=== PATIENT | female | born 1930 | race Caucasian/White ===

== ENCOUNTER 2017-05-12 07:05 | Observation (INO) | payer MEDICARE ==
[~2017-05-12] VITALS: Ht 162.6 cm; Wt 84.1 kg
[2017-05-12] MEDS ORDERED: ONDANSETRON HCL 4 MG/2 ML VIAL ONE (07:20)
[2017-05-12] MEDS ORDERED: MORPHINE SULFATE 2 MG/ML 1ML SYG ONE (07:20)
[2017-05-12 07:57] LABS: BASOPHILS % (AUTO) 0.5 % (0.0-5.0); EOSINOPHILS % (AUTO) 0.5 % (0.0-8.0); HEMATOCRIT 41.9 % (36-48); MEAN CORPUSCULAR HEMOGLOBIN 30.4 pg (27.0-33.0); MEAN CORPUSCULAR VOLUME 89.6 fL (79-99); PLATELET COUNT (AUTO) 157 K/uL (130-400); RED BLOOD CELL COUNT(AUTO) 4.67 MIL/uL (4.00-5.50); RED CELL DISTRIBUTION WIDTH 14.1 % (11.0-15.5); WHITE BLOOD COUNT (AUTO) 6.4 K/uL (4.8-10.8)
[2017-05-12 08:07] LABS: POTASSIUM 4.9 mmol/L (3.5-5.1)
[2017-05-12 08:22] LABS: ALBUMIN 3.5 g/dL (3.5-5.0); BILIRUBIN,TOTAL 0.8 mg/dL (0.2-1.0); TOTAL PROTEIN, SERUM 7.1 g/dL (6.0-8.3)
[2017-05-12 08:26] LABS: B-TYPE NATRIURETIC PEPTIDE 275 pg/mL (0-100)
[2017-05-12 08:37] LABS: PARTIAL THROMBOPLASTIN TIME 40.1 SEC (26.3-35.5)
[2017-05-12 08:43] LABS: INR 3.9 (0.85-1.15); PROTHROMBIN TIME 39.9 SEC (9.6-11.6)
[2017-05-12] MEDS ORDERED: FUROSEMIDE 10 MG/ML 4ML VIAL ONE (09:29)
[2017-05-12] MEDS ORDERED: GUAIFENESIN-DM 200/20 MG 10 ML PO PRN (09:45)
[2017-05-12] MEDS ORDERED: LACTULOSE 20 GM/30 ML UDCUP PO PRN (09:45)
[2017-05-12] MEDS ORDERED: HYDRALAZINE HCL 20 MG/ML VIAL IV PRN (09:45)
[2017-05-12] MEDS ORDERED: ACETAMINOPHEN 325 MG TAB PO PRN ×2 (09:45)
[2017-05-12] MEDS ORDERED: MORPHINE SULFATE 2 MG/ML 1ML SYG IV PRN (09:45)
[2017-05-12] MEDS ORDERED: NITROGLYCERIN 0.4 MG SL TAB SL PRN (09:45)
[2017-05-12] MEDS ORDERED: ACETAMINOPHEN-CODEINE 300/30MG TAB PO PRN ×2 (09:45)
[2017-05-12] MEDS ORDERED: MAG HYDROX/AL HYDROX/SIMETH ES 30 ML SUSP UDCUP PO PRN (09:45)
[2017-05-12] MEDS ORDERED: MORPHINE SULFATE 4 MG/1ML SYG IV PRN (09:45)
[2017-05-12] MEDS ORDERED: ONDANSETRON HCL 4 MG/2 ML VIAL IV PRN (09:45)
[2017-05-12] MEDS ORDERED: LIDOCAINE HCL-MPF 1% 2ML VIAL IVP PRN (11:00)
[2017-05-12] MEDS ORDERED: POTASSIUM CHLORIDE 20MEQ/100ML 100 ML IV PRN (11:00)
[2017-05-12] MEDS ORDERED: POTASSIUM CHLORIDE 10% ELIXIR 20 MEQ/15 ML UDCUP PO PRN (11:00)
[2017-05-12] MEDS ORDERED: MAGNESIUM 2GM PREMIX 50ML 50 ML IV SCH (11:00)
[2017-05-12] MEDS ORDERED: POTASSIUM CHLORIDE 20 MEQ ERTAB PO PRN (11:00)
[2017-05-12] MEDS ORDERED: IPRATROPIUM/ALBUTEROL SULFATE 3 ML SOLUTION IH PRN (11:15)
[2017-05-12 12:18] VITALS: BP 152/65
[2017-05-12 13:58] LABS: CREATINE KINASE MB 1.1 ng/mL (0.5-3.6); CREATINE KINASE, TOTAL 95 U/L (21-232); MYOGLOBIN 172 ng/mL (10-92); TROPONIN I < 0.04 ng/mL (0.00-0.06)
[2017-05-12 16:12] VITALS: BP 140/74
[2017-05-12 17:49] LABS: APPEARANCE,URINE Clear (CLEAR); BILIRUBIN,URINE Negative (NEGATIVE); COLOR,URINE Yellow (YELLOW); GLUCOSE, URINE (UA) Negative (NEGATIVE); KETONES,URINE Negative (NEGATIVE); LEUKOCYTE ESTERASE ,URINE Trace (NEGATIVE); NITRATE,URINE Negative (NEGATIVE); OCCULT BLOOD,URINE Small (NEGATIVE); PH,URINE 6.5 (5.0-8.0); PROTEIN,URINE Negative (NEGATIVE)
[2017-05-12 18:22] LABS: BACTERIA,URINE Rare /HPF (None Seen); SQUAMOUS EPITHELIAL CELL,UR Rare /LPF (0-2); WBC,URINE 0-1 /HPF (0-1)
[2017-05-12 19:25] VITALS: BP 101/48
[2017-05-12] MEDS: METOPROLOL TARTRATE 25 MG TAB PO SCH (21:00)
[2017-05-12 21:55] LABS: CREATINE KINASE MB 0.9 ng/mL (0.5-3.6); CREATINE KINASE, TOTAL 111 U/L (21-232); MYOGLOBIN 161 ng/mL (10-92); TROPONIN I < 0.04 ng/mL (0.00-0.06)
[2017-05-12] MEDS: FUROSEMIDE 10 MG/ML 2ML VIAL IV SCH (22:42)
[2017-05-12] MEDS: FAMOTIDINE/PF 20 MG/2 ML VIAL IV SCH (22:42)
[2017-05-13] VITALS (7 sets, daily range): BP systolic 104–178; BP diastolic 69–78
[2017-05-13 04:40] LABS: INR 3.39 (0.85-1.15); PROTHROMBIN TIME 34.8 SEC (9.6-11.6)
[2017-05-13 04:42] LABS: CREATININE 1.2 mg/dL (0.5-1.5); POTASSIUM 4.5 mmol/L (3.5-5.1)
[2017-05-13] MEDS: LOSARTAN 100 MG TABLET PO SCH (08:12)
[2017-05-13] MEDS: METOPROLOL TARTRATE 25 MG TAB PO SCH ×2 (08:12→21:00)
[2017-05-13] MEDS: FAMOTIDINE/PF 20 MG/2 ML VIAL IV SCH ×2 (08:13→21:04)
[2017-05-13] MEDS: FUROSEMIDE 10 MG/ML 2ML VIAL IV SCH (08:14)
[2017-05-13] MEDS ORDERED: METO-409 PO (10:59)
[2017-05-13] MEDS ORDERED: FURO20TA4 PO (10:59)
[2017-05-13] MEDS ORDERED: OMEP40CA37 PO (10:59)
[2017-05-13] MEDS ORDERED: WARF-57 PO (10:59)
[2017-05-13] MEDS ORDERED: SIMV40TA5 PO (10:59)
[2017-05-13] MEDS ORDERED: LOSA100T29 PO (10:59)
[2017-05-14 04:00] VITALS: BP 124/78
[2017-05-14 04:30] LABS: INR 2.87 (0.85-1.15); PROTHROMBIN TIME 29.5 SEC (9.6-11.6)
[2017-05-14 07:00] VITALS: BP 112/78
[2017-05-14] MEDS: FAMOTIDINE/PF 20 MG/2 ML VIAL IV SCH (08:14)
[2017-05-14] MEDS: METOPROLOL TARTRATE 25 MG TAB PO SCH (08:14)
[2017-05-14] MEDS: LOSARTAN 100 MG TABLET PO SCH (08:52)
[2017-05-14] MEDS ORDERED: METO-408 PO (10:34)
[2017-05-14 11:00] VITALS: BP 114/70
[2017-05-14] MEDS ORDERED: WARFARIN SODIUM 5 MG TAB PO SCH (16:00)
== END 2017-05-14 15:32 | disposition home or self-care (01) ==
LOC: EDH 07:05 → EDHIP 09:38 → 2CH 14:47
PROVIDERS: ADMIT Internal Medicine; ATTEND Internal Medicine
DX: I48.2 Chronic atrial fibrillation (principal); E78.5 Hyperlipidemia, unspecified; N18.3 Chronic kidney disease, stage 3 (moderate); I12.9 Hypertensive chronic kidney disease with stage 1 through stage 4 chronic kidney disease, or unspecified chronic kidney disease; Z90.710 Acquired absence of both cervix and uterus; Z79.01 Long term (current) use of anticoagulants; J44.9 Chronic obstructive pulmonary disease, unspecified; E78.00 Pure hypercholesterolemia, unspecified; Z79.899 Other long term (current) drug therapy; I73.9 Peripheral vascular disease, unspecified
CPT/HCPCS: 36415 ×3; 71045; 72110; 80048; 80053; 81001; 82550 ×3; 82553 ×3; 82607; 82652; 83735 ×2; 83874 ×2; 83880 ×2; 84132; 84484 ×3; 85025; 85610 ×3; 85730 ×2; 93005 ×2; 93306; 93925; 93971; 94664; 96374; 96375; 96376 ×2; 97161; 99285; G0378 ×54; G8978; G8979; G8980; G8981; G8982; G8983; J1940 ×3; J2405; J3490 ×4

== ENCOUNTER → 2017-05-25 | Outpatient (CLI) | payer MEDICARE ==
[~2017-05-25] MED LIST: FURO20TA4 PO; IOPAMIDOL-370 100 ML VIAL IV ONE; IOPAMIDOL-370 75 ML VIAL IV ONE; LOSA100T29 PO; METO-408 PO; OMEP40CA37 PO; SIMV40TA5 PO; WARF-57 PO
== END | disposition home or self-care (01) ==
LOC: OIH 09:14
PROVIDERS: ATTEND Internal Medicine Cardiovascular Disease
DX: I70.8 Atherosclerosis of other arteries (principal); I73.9 Peripheral vascular disease, unspecified; K57.90 Diverticulosis of intestine, part unspecified, without perforation or abscess without bleeding; I51.7 Cardiomegaly; M89.40 Other hypertrophic osteoarthropathy, unspecified site
CPT/HCPCS: 75635; Q9967 ×2

== ENCOUNTER → 2018-05-04 | Outpatient (CLI) | payer MEDICARE ==
[~2018-05-04] MED LIST changes: -IOPAMIDOL-370 100 ML VIAL IV ONE; -IOPAMIDOL-370 75 ML VIAL IV ONE; -LOSA100T29 PO; +LOSA100T58 PO
== END | disposition home or self-care (01) ==
LOC: SHCH 13:29
PROVIDERS: ATTEND Internal Medicine Cardiovascular Disease
DX: I65.23 Occlusion and stenosis of bilateral carotid arteries (principal)
CPT/HCPCS: 93880

== ENCOUNTER → 2019-02-01 | Outpatient (CLI) | payer MEDICARE ==
[~2019-02-01] MED LIST changes: +OMEP40CA13 PO; -OMEP40CA37 PO; +ONDANSETRON HCL 4 MG/2 ML VIAL ONE; +PROPOFOL 10 MG/ML 20ML VIAL IV ONE; +SIMV-46 PO; -SIMV40TA5 PO
== END | disposition home or self-care (01) ==
LOC: SHCH 08:34
PROVIDERS: ATTEND Internal Medicine Cardiovascular Disease
DX: I08.0 Rheumatic disorders of both mitral and aortic valves (principal); E66.9 Obesity, unspecified; R01.1 Cardiac murmur, unspecified
CPT/HCPCS: 93306; J2405; J2704 ×2

== ENCOUNTER 2020-11-16 19:57 | Emergency (ER) | payer MEDICARE ==
[~2020-11-16] VITALS: Ht 165.1 cm; Wt 81.2 kg
[~2020-11-16 19:57] MED LIST changes: -OMEP40CA13 PO; +OMEP40CA21 PO; -ONDANSETRON HCL 4 MG/2 ML VIAL ONE; -PROPOFOL 10 MG/ML 20ML VIAL IV ONE
[2020-11-16 20:17] VITALS: BP 165/120
[2020-11-16 21:18] LABS: BASOPHILS % (AUTO) 0.5 % (0.0-5.0); EOSINOPHILS % (AUTO) 0.6 % (0.0-8.0); HEMATOCRIT 44.4 % (36-48); LYMPHOCYTES % (AUTO) 16.2 % (21.0-51.0); MEAN CORPUSCULAR HEMOGLOBIN 30.2 pg (27.0-33.0); MEAN CORPUSCULAR HGB CONC 32.9 g/dL (32.0-36.0); MEAN CORPUSCULAR VOLUME 91.9 fL (79-99); MONOCYTES % (AUTO) 6.9 % (3.0-13.0); NEUTROPHILS % (AUTO) 75.4 % (40.0-77.0); PLATELET COUNT (AUTO) 143 K/uL (130-400); RED BLOOD CELL COUNT(AUTO) 4.83 MIL/uL (4.00-5.50); RED CELL DISTRIBUTION WIDTH 13.8 % (11.0-15.5); WHITE BLOOD COUNT (AUTO) 7.7 K/uL (4.8-10.8)
[2020-11-16 21:27] LABS: CREATININE 0.9 mg/dL (0.5-1.5); POTASSIUM 4.5 mmol/L (3.5-5.1)
[2020-11-16 21:30] LABS: INR 1.72 (0.85-1.15); PROTHROMBIN TIME 17.8 SEC (9.6-11.6)
[2020-11-16 21:31] LABS: ALBUMIN 3.8 g/dL (3.5-5.0); TOTAL PROTEIN, SERUM 7.6 g/dL (6.0-8.3)
[2020-11-16 21:35] LABS: B-TYPE NATRIURETIC PEPTIDE 381 pg/mL (0-100)
[2020-11-16] MEDS ORDERED: VITAD50000 PO (22:08)
[2020-11-16] MEDS ORDERED: MULT-1192 PO (22:08)
[2020-11-16] MEDS ORDERED: FISH1CAP27 PO (22:09)
[2020-11-16 22:14] VITALS: BP 169/77
[2020-11-16] MEDS ORDERED: ONDANSETRON 4MG INJ ONE (22:59)
[2020-11-16] MEDS ORDERED: ONDANSETRON 4MG INJ IVP ONE (23:00)
[2020-11-16] MEDS ORDERED: ONDA4TAB10 PO (23:02)
== END 2020-11-16 23:49 | disposition home or self-care (01) ==
LOC: EDH 19:57
DX: R06.00 Dyspnea, unspecified (principal); R11.0 Nausea; I48.91 Unspecified atrial fibrillation; I10 Essential (primary) hypertension; M81.0 Age-related osteoporosis without current pathological fracture; Z79.01 Long term (current) use of anticoagulants; Z79.899 Other long term (current) drug therapy
CPT/HCPCS: 36415; 71045; 80053; 83880; 84484; 85025; 85610; 93005 ×2; 96374; 99285; J2405